=== PATIENT | male | born 1975 | race Caucasian/White ===

== ENCOUNTER 2020-12-18 12:21 | Outpatient (RCR) | payer OTHER, SELFPAY ==
[2020-12-18 12:41] VITALS: BMI 39.5
[2020-12-18 12:44] VITALS: BMI 39.5
== END 2021-03-10 11:07 | disposition home or self-care (01) ==
LOC: ANHDMC 12:21
PROVIDERS: PCP Internal Medicine; Visit Provider Internal Medicine
DX: E11.9 Type 2 diabetes mellitus without complications (principal); Z71.3 Dietary counseling and surveillance
CPT/HCPCS: 97802